=== PATIENT | female | born 1935 | race Hispanic/Latino ===

== ENCOUNTER 2017-10-30 16:17 | Inpatient (IN) | payer MEDICARE, BC ==
[2017-10-30] MEDS ORDERED: Vancomycin 1gm in NS 250ml 1 GM/250 ML BAG IVPB STA (17:02)
[2017-10-30] MEDS ORDERED: Sodium Chloride 0.9% 1,000 ML IV STA (17:09)
[2017-10-30] MEDS ORDERED: Aztreonam 2 Gm in NS 100mL 100 ML IVPB STA (17:13)
--- NOTE | 2017-10-30 17:15 | ED PDOC ---
Arrival/HPI - General Time Seen by Provider: 10/30/17 16:47 Historian: Patient - History of Present Illness Narrative History of Present Illness (Text): 10/30/17 17:14 This 82 yo female came by BLS for right forehead Herpes Zoster rash affecting right periorbital area, with conjuctivitis, moderate right eye discharge x 2 weeks. Patient stated she was evaluated by Dr. Zendejas x 2 weeks ago, and referred to see Dr. Castellanos, Drafter Mechanical, who also saw x 2 weeks ago. Patient thinks she was prescribed medication for Herpes Zoster. Patient feels "tired", and she thinks she has a fever today. Patient admits eating and drinking , but appetite has decreased. Time/Duration: Other (see hpi) Context: Home Past Medical History - Provider Review Nursing Documentation Reviewed: Yes Family/Social History - Physician Review Nursing Documentation Reviewed: Yes Family/Social History: Other (noncontributory) Allergies/Home Meds Allergies/Adverse Reactions: Allergies Penicillins Allergy (Mild, Verified 10/30/17 17:02) RASH Review of Systems - Review of Systems Constitutional: Fatigue, Fevers. absent: Weight Change, Night Sweats Eyes: Other ((+) right eye infection. Right forehead Herpes Zoster) ENT: Normal Respiratory: Normal Cardiovascular: Normal Gastrointestinal: Normal Genitourinary Female: Normal Musculoskeletal: Normal Skin: Normal Neurological: Normal Endocrine: Normal Hemo/Lymphatic: Normal Psychiatric: Normal Physical Exam Vital Signs Temp Pulse Resp BP Pulse Ox 10/30/17 20:26 79 18 126/78 100 10/30/17 18:54 86 18 128/85 100 10/30/17 16:41 100.5 F H 96 H 20 131/91 H 100 Temperature: Afebrile Blood Pressure: Normal Pulse: Regular Respiratory Rate: Normal Appearance: Positive for: Well-Appearing, Non-Toxic, Ill-Appearing Pain Distress: None Mental Status: Positive for: Alert and Oriented X 3 - Systems Exam Head: Present: Atraumatic, Normocephalic Pupils: Present: PERRL, Other (Fluorescine stain was negative. No corneal FB. No Corneal dendritic lesion. No corneal abrasion or laceration) Extroacular Muscles: Present: EOMI. No: Entrapment Conjunctiva: Present: Injected, Other (Right eye discharge) Ears: Present: Normal, NORMAL TM, Normal Canal. No: Erythema, TM Bulging, Fluid , TM Perf Mouth: Present: Moist Mucous Membranes Pharnyx: Present: Normal. No: ERYTHEMA, EXUDATE, TONSILS ENLARGED Neck: Present: Normal Range of Motion, Trachea Midline. No: Meningeal Signs, MIDLINE TENDERNESS, Paraspinal Tenderness, Lymphadenopathy Respiratory/Chest: Present: Clear to Auscultation, Good Air Exchange. No: Respiratory Distress, Accessory Muscle Use, Wheezes, Retracting, Rhonchi, Tachypneic Cardiovascular: Present: Regular Rate and Rhythm, Normal S1, S2. No: Murmurs Abdomen: No: Tenderness, Distention, Peritoneal Signs, Rebound, Guarding Back: Present: Normal Inspection. No: CVA Tenderness Upper Extremity: Present: Normal Inspection, Normal ROM. No: Cyanosis, Edema Lower Extremity: Present: Normal Inspection, Normal ROM. No: Edema Neurological: Present: GCS=15, CN II-XII Intact, Speech Normal, Motor Func Grossly Intact, Normal Sensory Function, Normal Cerebellar Funct, Memory Normal Skin: Present: Warm, Dry, Normal Color. No: Rashes Psychiatric: Present: Alert, Oriented x 3, Normal Insight, Normal Concentration Medical Decision Making ED Course and Treatment: 10/30/17 17:[address] Zendejas regarding fever, right periorbital erythema, right forehead Herpes Zoster. Patient agreed with plan for admission. Recommended Dr. Oneal. 10/30/17 18:03 Dr. Castellanos [employer] was paged. 10/30/17 19:[address] Castellanos, viscosity inspector. He said he is not credentialed in this emergency department . Dr. Castellanos stated patient was seen by him x 3 weeks ago. Patient had 2 weeks course of Valtrex 1gr TID. Patient was seen by him x 4 days ago, and he noticed patient with right eye conjectivitis, which he ordered topical eye ABX. Dr. Castellanos stated patient never had dendritic corneal lesion, but mild uveitis of right eye, which it has improved. He agreed with plan to call navigation officer viscosity inspector. Dr. Hinson was paged 10/30/17 21:30 Dr. Hinson was paged multiple times. I will contact Dr. Cadet, emergency manager emergency department regarding this issue. 10/30/17 22:[address] Cadet regarding unable to contact . He will let me know what to do. 10/30/17 22:41 Dr. Jamison called me. I reviewed labs, ct scan of head, physical exam findings. I told Dr. Jamison that patient had been treated with Valtrex x 2 weeks. Eloy sanchez said he will see patient in [address] Jamison to call Dr. Zendejas tomorrow morning if he is not going to see patient tomorrow. Re-evaluation Time: 20:31 Reassessment Condition: Re-examined, Improving,but remains with symptoms - Lab Interpretations Lab Results: 10/30/17 18:00 10/30/17 18:00 Lab Results 10/30/17 19:39: Urine Color Light yellow, Urine Appearance Clear, Urine pH 7.5, Ur Specific [place] 1.010, Urine Protein Negative, Urine Glucose (UA) Negative, Urine Ketones 15 H, Urine Blood Trace-intact H, Urine Nitrate Negative, Urine Bilirubin Negative, Urine Urobilinogen 0.2, Ur Leukocyte Esterase Small H, Urine RBC 0 - 2, Urine WBC 0 - 2, Ur Epithelial Cells 1 - 3, Urine Bacteria Few 10/30/17 18:33: pO2 42, VBG pH 7.44 H, VBG pCO2 42.0, VBG HCO3 28.5 H, VBG Total CO2 29.8 H, VBG O2 Sat (Calc) 85.3 H, VBG Base Excess 3.9 H, VBG Potassium 3.1 L, Glucose 108 H, Lactate 1.8, FiO2 21.0, Sodium 137.0, Chloride 99.0, Venous Blood Potassium 3.1 L 10/30/17 18:00: Sodium 138, Potassium 3.4 L, Chloride 97 L, Carbon Dioxide 24, Anion Gap 19, BUN 8, Creatinine 0.6 L, Est GFR ( Amer) > 60, Est GFR (Non -Af Amer) > 60, Random Glucose 105, Calcium 9.4, Phosphorus 2.1 L, Magnesium 1.6 L, Total Bilirubin 2.4 H, AST 38 H, ALT 36, Alkaline Phosphatase 60, Lactate Dehydrogenase 810 H, Total Creatine Kinase 118, Troponin I 0.07, NT-Pro- B Natriuret Pep 1680 H, Total Protein 7.4, Albumin 3.9, Globulin 3.5, Albumin/ Globulin Ratio 1.1 10/30/17 18:00: PT 13.7 H, INR 1.20 H, APTT 30.3 10/30/17 18:00: WBC 11.4 H, RBC 4.41, Hgb 13.4, Hct 39.7, MCV 90.0, MCH 30.4, MCHC 33.8, RDW 15.0 H, Plt Count 206, MPV 9.8, Gran % 67.9, Lymph % (Auto) 14.3 L, [place] % (Auto) 17.4 H, Eos % (Auto) 0.2 L, Baso % (Auto) 0.2, Gran # 7.72 H, Lymph # (Auto) 1.6, [place] # (Auto) 2.0 H, Eos # (Auto) 0.0, Baso # (Auto) 0.02, ESR 56 H I have reviewed the lab results: Yes Interpretation: Abnormal lab values - RAD Interpretation Narrative RAD Interpretations (Text): 10/30/17 21:48 FINDINGS: Brain: Moderate volume loss is seen in keeping with age, with minimal decrease in attenuation of the periventricular white matter likely related to small vessel ischemic change. The brain otherwise appears unremarkable. There is normal tello-white matter differentiation, demonstrating no edema, mass effect, acute hemorrhage, or focal mass. Ventricles: Unremarkable. No ventriculomegaly. Bones/joints: Unremarkable. No acute fracture. Soft tissues: Unremarkable. Sinuses: Unremarkable as visualized. No acute sinusitis. Mastoid air cells: Unremarkable as visualized. No mastoid effusion. IMPRESSION: Age -related atrophy and chronic white matter ischemic changes, with no evidence of an acute intracranial abnormality Radiology Orders: 10/30/17 17:02 CHEST PORTABLE [RAD] Stat 10/30/17 17:26 HEAD W/O CONTRAST [CT] Stat - EKG Interpretation Interpreted by ED Physician: Yes (NSR @ 91bpm. Possible LAE. ) Type: 12 lead EKG Comparison: No previous EKG avail. - Medication Orders Current Medication Orders: Acetaminophen (Tylenol 325mg Tab) 650 mg PO Q4H NIECY Acetaminophen (Tylenol 325mg Tab) 650 mg PO Q4H PRN PRN Reason: Pain, Mild (1-3) Sodium Chloride (Sodium Chloride 0.9%) 1,000 mls @ 75 mls/hr IV .[id number] NIECY Last Admin: 10/30/17 21:56 Dose: 75 mls/hr eMAR Start Stop Document 10/30/17 21:56 OCS (Rec: 10/30/17 21:56 OCS [email or web address]) Intravenous Solution Start Date 10/30/17 Start Time 21:56 Magnesium Sulfate (Magnesium Sulfate 2 Gm/50 Ml Water) 2 gm in 50 mls @ 102 mls /hr IV ONCE ONE Stop: 10/30/17 22:54 Magnesium Oxide (Mag-Ox) 400 mg PO TID NIECY Stop: 11/03/17 10:01 Oxycodone/Acetaminophen (Percocet 5/325 Mg Tab) 1 tab PO Q4 PRN PRN Reason: Pain, moderate (4-7) Stop: 11/03/17 00:01 Potassium Phos/Sodium Phos (Neutra-Phos) 1 pkt PO BID NIECY Stop: 11/03/17 22:31 Discontinued Medications Acetaminophen (Tylenol 325mg Tab) 975 mg PO STAT STA Stop: 10/30/17 17:15 Last Admin: 10/30/17 18:16 Dose: 975 mg MAR Pain/Vitals Document 10/30/17 18:16 EQ (Rec: 10/30/17 18:16 EQ [facility]) Pain Reassessment Is This A Pain ReAssessment? No Sleep Is patient sleeping during reassessment? No Presence of Pain Presence of Pain Yes Vancomycin HCl (Vancomycin 1gm) 1 gm in 250 mls @ 167 mls/hr IVPB STAT STA PRN Reason: Protocol Stop: 10/30/17 18:31 Last Admin: 10/30/17 19:53 Dose: 167 mls/hr eMAR Start Stop Document 10/30/17 19:53 EQ (Rec: 10/30/17 19:53 EQ [email or web address]) Intravenous Solution Start Date 10/30/17 Start Time 19:53 Sodium Chloride (Sodium Chloride 0.9%) 1,000 mls @ 999 mls/hr IV .Q1H1M STA Stop: 10/30/17 18:09 Last Admin: 10/30/17 18:15 Dose: 999 mls/hr eMAR Start Stop Document 10/30/17 18:15 EQ (Rec: 10/30/17 18:15 EQ [email or web address]) Intravenous Solution Start Date 10/30/17 Start Time 18:15 Aztreonam (Azactam 2 Gm) 100 mls @ 100 mls/hr IVPB STAT STA PRN Reason: Protocol Stop: 10/30/17 18:12 Last Admin: 10/30/17 18:15 Dose: 100 mls/hr eMAR Start Stop Document 10/30/17 18:15 EQ (Rec: 10/30/17 18:16 EQ [email or web address] Intravenous Solution Start Date 10/30/17 Start Time 18:16 Acyclovir 635 mg/ Sodium (Chloride) 100 mls @ 100 mls/hr IV STAT STA PRN Reason: Protocol Stop: 10/30/17 18:39 Acyclovir 520 mg/ Sodium (Chloride) 100 mls @ 100 mls/hr IV STAT STA PRN Reason: Protocol Stop: 10/30/17 18:39 Last Admin: 10/30/17 21:25 Dose: 100 mls/hr eMAR Start Stop Document 10/30/17 21:25 EQ (Rec: 10/30/17 21:25 EQ [email or web address] Intravenous Solution Start Date 10/30/17 Start Time 21:25 Potassium Chloride (Potassium Chloride Oral Soln) 20 meq PO STAT STA Stop: 10/30/17 19:24 Last Admin: 10/30/17 19:55 Dose: 20 meq Tobramycin Sulfate (Tobrex 0.3% Ophth Oint) 1 appl OD STAT STA Stop: 10/30/17 21:36 Last Admin: 10/30/17 21:44 Dose: 0.3 % Disposition/Present on Arrival - Present on Arrival Any Indicators Present on Arrival: No History of DVT/PE: No History of Uncontrolled Diabetes: No Urinary Catheter: No History of Decub. Ulcer: No - Disposition Have Diagnosis and Disposition been Completed?: Yes Diagnosis: Periorbital cellulitis of right eye, Conjunctivitis, Fever, Leukocytosis, Herpes zoster Disposition: HOSPITALIZED Disposition Time: 20:33 Patient Plan: Admission Patient Problems: Current Active Problems Problem Status Onset Periorbital cellulitis of right eye Acute Conjunctivitis Acute Fever Acute Leukocytosis Acute Herpes zoster Acute Condition: STABLE
[2017-10-30] MEDS ORDERED: ACYCLOVIR IV STA ×2 (17:40→18:23)
[2017-10-30] MEDS ORDERED: SODIUM CHLORIDE 0.9% IV STA ×2 (17:40→18:23)
[2017-10-30 18:19] VITALS: BMI 19.7
[2017-10-30 18:37] LABS: VENOUS BLOOD GAS BASE EXCESS 3.9 mmol/L (0.0-2.0); VENOUS BLOOD GAS PO2 42 mm/Hg (30-55); VENOUS BLOOD PH 7.44 (7.32-7.43)
[2017-10-30 18:46] LABS: BASO # 0.02 K/mm3 (0.0-2.0); BASO % 0.2 % (0.0-3.0); EOS % 0.2 % (1.5-5.0); GRAN # 7.72 (1.4-6.5); GRAN % 67.9 % (50.0-68.0); HEMOGLOBIN 13.4 g/dL (12.0-16.0); LYMPH # 1.6 (1.2-3.4); LYMPH % 14.3 % (22.0-35.0); MEAN CORPUSCULAR HEMOGLOBIN 30.4 pg (25.0-35.0); MEAN CORPUSCULAR HGB CONC 33.8 g/dl (31.0-37.0); MEAN PLATELET VOLUME 9.8 fl (7.0-11.0); MONO % 17.4 % (1.0-6.0); RBC 4.41 10^6/uL (3.5-6.1); WHITE BLOOD COUNT 11.4 10^3/ul (4.5-11.0)
[2017-10-30 18:50] LABS: INR 1.2 (0.93-1.08); PARTIAL THROMBOPLASTIN TIME 30.3 Seconds (25.1-36.5); PROTHROMBIN TIME 13.7 SECONDS (9.4-12.5)
[2017-10-30 18:54] LABS: ALB/GLOB RATIO 1.1 (1.1-1.8); ALBUMIN 3.9 g/dL (3.0-4.8); CALCIUM 9.4 mg/dL (8.4-10.5); GFR AFRICAN-AMERICAN > 60; GFR NON-AFRICAN AMERICAN > 60
[2017-10-30 18:56] LABS: ALT/SGPT 36 U/L (7-56); AST/SGOT 38 U/L (14-36); BLOOD UREA NITROGEN 8 mg/dL (7-21)
[2017-10-30 19:06] LABS: B-TYPE NATRIURETIC PEPTIDE 1680 pg/mL (0-450); TROPONIN I 0.07 ng/mL
[2017-10-30] MEDS ORDERED: Potassium Chloride 20 mEq/15 ml LIQ UD PO STA (19:23)
[2017-10-30 19:45] LABS: PH,URINE 7.5 (4.7-8.0); URINE BILIRUBIN NEGATIVE (NEGATIVE); URINE BLOOD TRACE-INTACT (NEGATIVE); URINE GLUCOSE (UA) NEGATIVE (NEGATIVE); URINE LEUKOCYTE ESTERASE SMALL Leu/uL (NEGATIVE); URINE PROTEIN NEGATIVE mg/dL (<30 mg/dL); URINE UROBILINOGEN 0.2 E.U./dL (<1 E.U./dL)
[2017-10-30 19:49] LABS: URINE COLOR LIGHT YELLOW (YELLOW)
[2017-10-30 19:50] LABS: URINE APPEARANCE CLEAR (CLEAR)
[2017-10-30 19:55] LABS: URINE RBC 0 - 2 /hpf (0-2)
[2017-10-30 19:56] LABS: URINE BACTERIA FEW (NEG); URINE WBC 0 - 2 /hpf (0-6)
[2017-10-30] MEDS ORDERED: Tobramycin 0.3% OPH OINT OD STA (21:35)
[2017-10-30] MEDS: Sodium Chloride 0.9% 1,000 ML IV SCH (21:56)
[2017-10-30] MEDS ORDERED: Magnesium Sulfate 2 gm/50 ml 2 GM/50 ML BAG IV ONE (22:25)
--- NOTE | 2017-10-30 22:30 | CARD ---
APPROVED REPORT EKG Measurement Heart [id number] <Conclusion> Normal sinus rhythm Possible Left atrial enlargement LBBB Abnormal ECG
[2017-10-30] MEDS: Linezolid 600 mg in D5W 300 ml 600 MG/300 ML BAG IVPB SCH (23:53)
[2017-10-30] MEDS: Potassium & Sodium Phosphate PO SCH (23:54)
[2017-10-31] MEDS: Acyclovir 500 MG in Sodium Chloride 0.9% 100 ML IV SCH ×4 (00:31→21:37)
[2017-10-31 07:01] LABS: HEMOGLOBIN 11.3 g/dL (12.0-16.0); MEAN CELL VOLUME 89.5 fl (80.0-105.0); MEAN CORPUSCULAR HEMOGLOBIN 29.6 pg (25.0-35.0); MEAN PLATELET VOLUME 9.2 fl (7.0-11.0); RBC 3.82 10^6/uL (3.5-6.1); RED CELL DISTRIBUTION WIDTH 15.3 % (11.5-14.5); WHITE BLOOD COUNT 8.6 10^3/ul (4.5-11.0)
[2017-10-31 07:15] LABS: ALBUMIN 3.1 g/dL (3.0-4.8); ALT/SGPT 29 U/L (7-56); AST/SGOT 33 U/L (14-36); BLOOD UREA NITROGEN 7 mg/dL (7-21); CALCIUM 8.2 mg/dL (8.4-10.5); GFR AFRICAN-AMERICAN > 60; GFR NON-AFRICAN AMERICAN > 60
--- NOTE | 2017-10-31 08:25 | CT ---
PROCEDURE: CT HEAD WITHOUT CONTRAST. HISTORY: feeling fatigue, weakness COMPARISON: None available. TECHNIQUE: Axial computed tomography images were obtained through the head/brain without intravenous contrast. Radiation dose: Total exam DLP = mGy-cm. This CT exam was performed using one or more of the following dose reduction techniques: Automated exposure control, adjustment of the mA and/or kV according to patient size, and/or use of iterative reconstruction technique. FINDINGS: HEMORRHAGE: No intracranial hemorrhage. BRAIN: No mass effect or edema. No atrophy or chronic microvascular ischemic changes. VENTRICLES: Unremarkable. No hydrocephalus. CALVARIUM: Unremarkable. PARANASAL SINUSES: Unremarkable as visualized. No significant inflammatory changes. MASTOID AIR CELLS: Unremarkable as visualized. No inflammatory changes. OTHER FINDINGS: None. IMPRESSION: Normal CT of the Head.
--- NOTE | 2017-10-31 08:52 | RAD ---
HISTORY: Sepsis Patient COMPARISON: No prior. FINDINGS: LUNGS: The lungs are well inflated. There are diffuse increased interstitial markings. No focal consolidation. PLEURA: No significant pleural effusion identified, no pneumothorax apparent. CARDIOVASCULAR: Normal. OSSEOUS STRUCTURES: No significant abnormalities. VISUALIZED UPPER ABDOMEN: Normal. OTHER FINDINGS: Surgical clips in the right upper quadrant are related to prior cholecystectomy. IMPRESSION: Diffuse increased interstitial markings could represent interstitial edema or interstitial thickening. Interstitial pneumonitis is also a consideration. No lobar pneumonia.
[2017-10-31] MEDS: Magnesium Oxide 400 mg Tab UD PO SCH ×3 (09:56→18:23)
[2017-10-31] MEDS: Linezolid 600 mg in D5W 300 ml 600 MG/300 ML BAG IVPB SCH ×2 (09:56→21:37)
[2017-10-31] MEDS: Potassium & Sodium Phosphate PO SCH ×2 (09:56→18:25)
--- NOTE | 2017-10-31 11:10 | HP ---
DATE OF EXAM: 10/31/2017 CHIEF COMPLAINT AND HISTORY OF PRESENT ILLNESS: This is an 82-year-old female who is coming in to the hospital who was diagnosed with shingles about 1 month ago. The patient had right-sided eye involvement. She was seen by Ophthalmology. She was given full course of valacyclovir for about 2 weeks. She had improvement of her symptoms. She was following with her yarn weigher, Dr. Castellanos. She has been having issues with pain and was given narcotics to help with the pain management as well as tramadol. She had lost to follow up in my office over the past few weeks, although I did advise her for followup. I did speak to Dr. Castellanos, who said that the patient was seen and she had been declining. Plans were made for visiting nurses to come to the house for her to get physical therapy. Meanwhile, the patient came in to the hospital yesterday because she was complaining of weakness. She has not been eating as well as she did before. She felt tired. She is fatigued. She has no chest pain. No shortness of breath. No abdominal pain. No back pain. No dysuria or frequency. No nocturia. No weakness in the arms or her legs. REVIEW OF SYMPTOMS: All other review of symptoms are within normal limits except that was mentioned. PAST MEDICAL HISTORY: No significant past medical history. ALLERGIES: TO PENICILLIN. HOME MEDICATIONS: Not known. FAMILY HISTORY: Noncontributory. SOCIAL HISTORY: She does not smoke or drink. PHYSICAL EXAMINATION: VITAL SIGNS: Temperature of 100.5, pulse of 96, respirations 20, blood pressure is 131/91, O2 saturations are 100%. GENERAL: The patient lying in bed, uncomfortable, and in no acute distress. HEENT: Atraumatic and normocephalic. Anicteric sclerae. Moist mucosa. [place] conjunctivae. No oral lesions. Right eye, it is closed. She is not able to open it fully. There is some discharge. NECK: No JVD, anterior and posterior adenopathy, thyromegaly, or bruits. CARDIOVASCULAR: S1 and S2 regular. No murmur, rubs, or gallop. LUNGS: Clear to auscultation bilaterally. No wheezes, rales, or rhonchi. ABDOMEN: Bowel sounds are positive. Soft, nontender and nondistended. No hepatosplenomegaly. No rebound and no guarding EXTREMITIES: No cyanosis, clubbing, or edema. NEUROLOGIC: No facial asymmetry. Tongue is midline. No uvula deviation. Power is 5/5 upper extremity and lower extremity. Sensation intact in upper extremity and lower extremity. PSYCHIATRIC: She is awake, alert and oriented x3. No anxiety or depression. She has normal affect. GENITOURINARY: No CVA tenderness. VASCULAR: 2+ pulses in the carotid pulses and pedal pulses. SKIN: No erythema or nodules. SPINE: Shows normal curvature. LABORATORY DATA: White count of 11.4, hemoglobin is 13.4, platelet count is 206. INR is 1.2. Chemistry shows sodium 138, potassium 3.4, magnesium is 1.6. Urine shows esterase is small, blood is trace. CT of the head done is normal. EKG shows sinus rhythm at 91, QTc is 533. Chest x-ray shows diffuse increased interstitial markings. ASSESSMENT: 1. Shingles, improving. 2. Right eye uveitis. 3. Hypokalemia. 4. Hypophosphatemia. 5. Hypomagnesemia. 6. Penicillin allergy. PLAN: The patient is going to be admitted to the hospital. She is not able to walk properly. She has been declining even though she has been treated for her shingles. She has difficulty with her vision in the right eye. She is going to need her electrolytes replaced. She is going to be given magnesium, phosphorus and potassium. She is going to be given eye drops. She has finished 2 weeks of antiviral medication with valacyclovir. I will get ID evaluation and Ophthalmology evaluation. Blood cultures and urine cultures have been ordered. She is going to be on a heart-healthy diet. She is going to need physical therapy. She may need to go to subacute rehab. I will repeat her blood work tomorrow. Bishop Zendejas MD
[2017-10-31] MEDS: Sodium Chloride 0.9% 1,000 ML IV SCH (11:21)
--- NOTE | 2017-10-31 12:52 | CON ---
DATE: 10/31/2017 HISTORY OF PRESENT ILLNESS: The patient reports that she has a 2-week history of herpes zoster on the right side of her forehead. She reports over the last 2 weeks, she feels that she has progressively gotten worse. She has already been treated with oral Valtrex, but she noticed increased swelling of the right side of her face including her right upper lid and right lower lid. On today's exam, her vision is about 2200, right eye near. On slit lamp exam, her right upper and right lower lid are edematous. She has 2+ conjunctival injection. Her cornea has 2+ SPK, but no ulcer. Her anterior chamber is clear. She does have a nuclear sclerotic cataract. Her nerve and retina appear within normal limit. Her left eye appears within normal limits except for a nuclear sclerotic cataract. Her eye pressure is 18 mmHg in both eyes. She does appear to have herpes zoster conjunctivitis with keratitis. Mild keratitis in the right eye. There is no corneal ulcer. She is already being treated on systemic antiviral medication. I would recommend for her to be treated with topical TobraDex ointment to the right eye three times a day. Once she is discharged, please have her follow up in the office. The number is [phone]. You can also call the number if you have any questions. Jameson Jamison MD
[2017-10-31] MEDS: Oxycodone/Acetaminophen 5/325 mg Tab PO PRN ×4 (14:01→22:26)
[2017-10-31] MEDS: Tobramycin 0.3% OPH OINT OD SCH ×2 (17:13→21:39)
[2017-10-31] MEDS: Tobramycin/Dexamethasone (Tobradex) Opth Sol (2.5 ml) OD SCH (17:13)
[2017-10-31] MEDS ORDERED: Tobramycin 0.3% OPH OINT OD SCH (18:00)
[2017-11-01] MEDS: Sodium Chloride 0.9% 1,000 ML IV SCH (02:25)
[2017-11-01] MEDS: Acyclovir 500 MG in Sodium Chloride 0.9% 100 ML IV SCH ×3 (06:12→21:40)
[2017-11-01 07:23] LABS: HEMOGLOBIN 12.2 g/dL (12.0-16.0); MEAN CELL VOLUME 89.1 fl (80.0-105.0); MEAN CORPUSCULAR HEMOGLOBIN 29.6 pg (25.0-35.0); MEAN CORPUSCULAR HGB CONC 33.2 g/dl (31.0-37.0); MEAN PLATELET VOLUME 9.5 fl (7.0-11.0); RBC 4.12 10^6/uL (3.5-6.1); RED CELL DISTRIBUTION WIDTH 15.2 % (11.5-14.5); WHITE BLOOD COUNT 9.7 10^3/ul (4.5-11.0)
--- NOTE | 2017-11-01 07:28 | CON ---
DATE: 10/31/2017 LOCATION: The patient is seen earlier this morning in room 272. CHIEF COMPLAINT: Right eye infection x2 weeks' duration. HISTORY OF PRESENT ILLNESS: This is an 82-year-old female with no significant past medical history, who has a right eye infection. Was seen 2 weeks ago. She was diagnosed with actually more than that, a month ago, and was seen by Dr. Zendejas, was given Valtrex. She was also seen by Ophthalmology, she was also treated, and now in the hospital. She has not taken her Valtrex as well. She does have fevers at this point and that was the reason for being evaluated. REVIEW OF SYSTEMS: Reveals her eye is not changed for the last 2 weeks. Her vision is poor in her right eye . No abdominal pain, diarrhea or constipation. No bright red blood per rectum. No melena. PAST MEDICAL HISTORY: Noncontributory. PAST SURGICAL HISTORY: Significant for appendectomy. ALLERGIES: THE PATIENT IS ALLERGIC TO PENICILLIN. MEDICATIONS AT HOME: Included Valtrex. PHYSICAL EXAMINATION: GENERAL: The patient is in bed, no acute distress. VITAL SIGNS: Temperature of 98, T-max is 100.5; heart rate of 65, it was up to 96; respiratory rate of 20 and blood pressure is 139/60. The patient is saturating 97%. HEENT: Examination of HEENT reveals the right eye does have dry lesions that appear to be dry and not actual lesions but appears to be discharge from the conjunctiva. Her extraocular muscles are intact. She follows the examiner's finger, both sides, up and down. However, there appears to be a cataract in the right eye. There is discharge from the conjunctiva, it is erythematous. NECK: Supple. LUNGS: Have decreased breath sounds. HEART: Normal S1 and S2. ABDOMEN: Soft, nontender. LABORATORY DATA: Reveals a white count of 11,400, hemoglobin of 13, platelets of 206. Chemistries revealed the patient has a BUN of 8, creatinine of 0.6. The BNP is 16,000. The LFTs are noted. Urinalysis is noted. Microbiology is not available. Chest x-ray is reported to be interstitial markings. CAT scan of the head normal. ASSESSMENT AND PLAN: An 82-year-old female with fever, tachycardia and ALLERGIC TO PENICILLIN, with sepsis, with right eye herpes zoster, right facial herpes zoster, with herpes conjunctivitis and keratitis of the right eye with a cataract, with questionable bacterial superinfection. I am not sure if the fevers can be explained based on eye findings. She has no abdominal pain. We will treat the patient with Zyvox and acyclovir. Ophthalmology evaluation as noted. We will follow closely with you. Tae Oneal MD
[2017-11-01 07:44] LABS: ALB/GLOB RATIO 0.9 (1.1-1.8); ALBUMIN 3.2 g/dL (3.0-4.8); ALT/SGPT 26 U/L (7-56); AST/SGOT 35 U/L (14-36); BLOOD UREA NITROGEN 9 mg/dL (7-21); CALCIUM 8.6 mg/dL (8.4-10.5); GFR AFRICAN-AMERICAN > 60; GFR NON-AFRICAN AMERICAN > 60
[2017-11-01] MEDS: Oxycodone/Acetaminophen 5/325 mg Tab PO PRN ×3 (07:50→17:47)
[2017-11-01] MEDS: Potassium & Sodium Phosphate PO SCH ×2 (09:33→17:47)
[2017-11-01] MEDS: Tobramycin/Dexamethasone (Tobradex) Opth Sol (2.5 ml) OD SCH ×3 (09:33→17:46)
[2017-11-01] MEDS: Magnesium Oxide 400 mg Tab UD PO SCH ×3 (09:33→17:48)
[2017-11-01] MEDS: Tobramycin 0.3% OPH OINT OD SCH ×4 (09:34→21:40)
[2017-11-01] MEDS: Linezolid 600 mg in D5W 300 ml 600 MG/300 ML BAG IVPB SCH (09:34)
--- NOTE | 2017-11-01 10:52 | PN ---
DATE: 11/01/2017 SUBJECTIVE: The patient has no complaints of any chest pain. No shortness of breath. She states she is weak. She has difficulty with ambulating. OBJECTIVE: VITAL SIGNS: Temperature is 98.2, pulse is 81, blood pressure 158/90, respirations 12. GENERAL: The patient is lying in bed, flat, comfortable. HEENT: No oral lesion. Anicteric sclerae. Moist mucosa. NECK: No JVD, adenopathy, or thyromegaly. CARDIOVASCULAR: S1 and S2, regular. No murmurs, rubs, or gallops. LUNGS: Clear to auscultation bilaterally. No wheeze, rales, or rhonchi. ABDOMEN: Bowel sounds are positive. Soft, nontender and nondistended. EXTREMITIES: No cyanosis, clubbing or edema. LABORATORY DATA: White count of 9.7, hemoglobin 12.2, creatinine is 0.6. ASSESSMENT: 1. Shingles of the right eye. 2. Right eye uveitis, improved. 3. Hypokalemia. 4. Hypophosphatemia. 5. Hypomagnesemia. 6. PENICILLIN ALLERGY. PLAN: The patient is currently comfortable. She was seen by Ophthalmology and I appreciate their input. The patient is currently on electrolyte replacement. The patient's phosphorus, magnesium, potassium is improved. The patient is going to be on Percocet as needed for pain. She is on antibiotics, linezolid and acyclovir. The patient's urine culture and blood cultures have been negative. The patient is on a heart-healthy diet. We will continue to follow closely. The patient is going to need subacute rehab. The patient was seen by Physical Therapy, but not evaluated. We will await evaluation and possibly send to [place] when the patient is ready. Bishop Zendejas MD
[2017-11-01 14:55] VITALS: RESP 20
--- NOTE | 2017-11-01 22:00 | PN ---
DATE: 11/01/2017 SUBJECTIVE: The patient is in bed in no acute distress, nontoxic. PHYSICAL EXAMINATION VITAL SIGNS: Temperature is 98, blood pressure is 150/80, respiratory rate of 20, heart rate of 71. HEENT: Examination of HEENT is unremarkable. NECK: Supple. LUNGS: Have decreased breath sounds. HEART: Normal S1, S2. ABDOMEN: Soft, nontender. LABORATORY DATA: Laboratory examination reveals a white count of 9.7, hemoglobin of 12. Chemistries reveals BUN of 9, creatinine 0.6. Urinalysis is noted. Microbiology reveals the blood cultures no growth. Urine cultures multiple contamination. Review of the orders reveals the patient to be on acyclovir and Zyvox. Dr. Zendejas's note is reviewed. ASSESSMENT AND PLAN: An 82-year-old female with fever, tachycardia and ALLERGY TO PENICILLIN with sepsis, right eye herpes zoster, right facial herpes zoster and herpes conjunctivitis and keratitis of the right eye with a cataract and with a questionable bacterial superinfection. Currently, the patient's eye is significantly improved today on Zyvox and acyclovir. We will continue the present course. Follow closely with you. Continues to improve. Tae Oneal MD
[2017-11-02] MEDS: Linezolid 600 mg in D5W 300 ml 600 MG/300 ML BAG IVPB SCH ×2 (02:43→09:34)
[2017-11-02] MEDS: Oxycodone/Acetaminophen 5/325 mg Tab PO PRN ×2 (02:47→12:05)
[2017-11-02] MEDS: Acyclovir 500 MG in Sodium Chloride 0.9% 100 ML IV SCH ×2 (05:29→14:48)
[2017-11-02] MEDS: Magnesium Oxide 400 mg Tab UD PO SCH ×2 (09:35→14:43)
[2017-11-02] MEDS: Potassium & Sodium Phosphate PO SCH (09:35)
[2017-11-02] MEDS: Tobramycin/Dexamethasone (Tobradex) Opth Sol (2.5 ml) OD SCH ×2 (09:36→14:44)
[2017-11-02] MEDS: Tobramycin 0.3% OPH OINT OD SCH ×2 (09:36→14:44)
--- NOTE | 2017-11-02 11:20 | DS ---
HISTORY OF PRESENT ILLNESS: The patient has no complaints of any chest pain. No shortness of breath. No headaches or dizziness. The patient was admitted to the hospital because of right eye shingles. She has been having improvement of her symptoms. She has difficulty in ambulating. She is going to be going to subacute rehab. I did speak to the patient's son yesterday to give an update. PHYSICAL EXAMINATION: VITAL SIGNS: Temperature is 98, pulse is 71, blood pressure is 158/85, respirations 20, O2 saturation 98%. GENERAL: The patient is lying in bed, flat, comfortable. HEENT: No oral lesion. Anicteric sclerae. Moist mucosa. In the right eye, there is erythema in the right eye. There is no discharge. There is dried crusting on the forehead. NECK: No JVD, adenopathy, or thyromegaly. CARDIOVASCULAR: S1 and S2, regular. No murmurs, rubs, or gallops. LUNGS: Clear to auscultation bilaterally. No wheeze, rales, or rhonchi. ABDOMEN: Bowel sounds are positive, soft, nontender and nondistended. EXTREMITIES: No cyanosis, clubbing or edema. ASSESSMENT: 1. Shingles of the right eye. 2. Right eye uveitis, improved. 3. Hypokalemia. 4. Hypophosphatemia. 5. Hypomagnesemia. 6. Gait dysfunction. 7. PENICILLIN ALLERGY. PLAN: The patient is currently comfortable. She has blood cultures that have been negative. She is on magnesium replacement. The patient is on Percocet for pain. The patient is on tobramycin for her eyes. The patient is going to continue with Percocet for pain as needed. She is on a heart-healthy diet. Her electrolytes have improved. She is going to subacute rehab at [facility] today. Her is also at home and that she is the main caregiver. Currently, the patient's son is taking care of him at home. I did suggest to the family about sending the patient for respite care [facility] while this patient is there getting rehabilitation. I did fill out the forms for the respite care at [facility]. The patient is cleared to be discharged today to [facility]. Condition is stable. Activities increase as tolerated. Bishop Zendejas MD [facility] # [id number]
[2017-11-02 15:16] VITALS: BP 169/90; PULSE 90; TEMP 98.3; O2SAT 95
--- NOTE | 2017-11-02 15:17 | PN ---
DATE: 11/02/2017 SUBJECTIVE: The patient is in bed, in no acute distress, nontoxic, was seen earlier this morning. She was doing much better. PHYSICAL EXAMINATION VITAL SIGNS: Temperature is 98, blood pressure is 160/70, respiratory rate is 16. HEENT: Unremarkable. NECK: Supple. LUNGS: Have decreased breath sounds. HEART: Normal S1 and S2. ABDOMEN: Soft. LABORATORY DATA: Reveals a white count of 9.7, hemoglobin is 12 and platelets of 212,000. Chemistries are reviewed. Urinalysis is noted. Microbiology reveals cultures are negative. The patient's facial lesions greatly improved. 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 We will change the IV Zyvox to p.o. Zyvox and may be able to change the IV acyclovir to p.o. upon discharge. To follow up with Ophthalmology. Tae Oneal MD
== END 2017-11-02 18:34 | DRG 125 ==
LOC: ED 16:17 → ERH 20:29 → 2RSO 23:04 → 5RSO 10-31 13:54
PROVIDERS: ADMIT Internal Medicine Nephrology; ATTEND Internal Medicine Nephrology
DX: B02.31 Zoster conjunctivitis (principal); B00.52 Herpesviral keratitis; L03.213 Periorbital cellulitis; H20.9 Unspecified iridocyclitis; E87.6 Hypokalemia; E83.42 Hypomagnesemia; E83.39 Other disorders of phosphorus metabolism; H25.12 Age-related nuclear cataract, left eye; Z88.0 Allergy status to penicillin